=== PATIENT | male | born 1955 | race Caucasian/White ===

== ENCOUNTER → 2018-04-22 | Outpatient (CLI) | payer MEDICARE | END | disposition home or self-care (01) | LOC: Rad HDHVI 09:46 | PROVIDERS: ATTEND Internal Medicine | DX: Z01.818 Encounter for other preprocedural examination (principal); E78.5 Hyperlipidemia, unspecified; I11.9 Hypertensive heart disease without heart failure | CPT/HCPCS: 93306 ==

== ENCOUNTER → 2018-04-28 | Outpatient (CLI) | payer MEDICARE ==
[~2018-04-28] VITALS: Ht 185.4 cm; Wt 117.9 kg
== END | disposition home or self-care (01) ==
LOC: Rad HDHVI 09:40
PROVIDERS: ATTEND Internal Medicine
DX: I10 Essential (primary) hypertension (principal); E78.5 Hyperlipidemia, unspecified
CPT/HCPCS: 78452; 93017; 96374; A9500

== ENCOUNTER → 2018-05-06 | Outpatient (CLI) | payer MEDICARE ==
[~2018-05-06] MED LIST: IOHEXOL 350 MG/ML 100ML IJ ONE; METOPROLOL TARTRATE 1MG/1ML-5ML VIAL IV ONE; NITROGLYCERIN 0.4 MG SL TAB SL ONE
--- NOTE | 2018-05-06 08:50 | NUR ---
PT. TO CLINIC FOR CTA CORONARIES PER DR. NULL. PROCEDURE EXPLAINED TO PT. AT CHAIRSIDE FOR SUPPORT.
[2018-05-06 08:52] VITALS: BP 129/72
--- NOTE | 2018-05-06 08:52 | NUR ---
IV insertion IV access obtained, via clean sterile technique by inserting 20 gauge catheter at after attempt(s). IV secured properly. No trauma to site. Patient tolerated procedure well. CMP DRAWN STAT PER MD ORDER.
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
--- NOTE | 2018-05-06 09:11 | NUR ---
MEDS: PT. MEDICATED WITH LOPRESSOR 5 MG SIVP PER PROTOCOL. HR 68.
--- NOTE | 2018-05-06 09:19 | NUR ---
MEDS: LOPRESSOR 5 MG SIVP GIVEN SECOND DOSE PER PROTOCOL.SR AT 65 WITH NO ECTOPY.
--- NOTE | 2018-05-06 09:22 | NUR ---
MEDS: PT. MEDICATED WITH NTG 0.4 MG SL PER PROTOCOL PRIOR TO START OF CTA, HR 60-60
--- NOTE | 2018-05-06 09:30 | NUR ---
CTA COMPLETED WITH PT. TOLERATING PROCEDURE WELL, WITH NO C/O. AMBULATED BACK TO CLINIC WITHOUT ASSIST. TAKING PO FLUIDS.
[2018-05-06 09:33] LABS: Albumin 3.9 g/dL (3.4-5.0); Calcium 8.7 mg/dL (8.5-10.1); Potassium 3.5 mmol/L (3.5-5.1)
[2018-05-06 09:36] LABS: BUN/Creatinine Ratio 10.1; Total Protein 7.6 g/dL (6.4-8.2)
[2018-05-06 09:45] VITALS: BP 116/68
--- NOTE | 2018-05-06 09:55 | NUR ---
IV removal IV DC'd with sterile technique, catheter fully intact. Pressure dressing applied to site. Patient tolerated procedure well. Discharged with aftercare instructions per MD. NOTE: PT. INSTRUCTED TO INCREASE PO FLUIDS OVER NEXT 24 HRS.
== END | disposition home or self-care (01) ==
LOC: Rad HDHVI 08:37
PROVIDERS: ATTEND Internal Medicine
DX: I25.10 Atherosclerotic heart disease of native coronary artery without angina pectoris (principal); I10 Essential (primary) hypertension
CPT/HCPCS: 36415; 75571; 80053; G0463; Q9967

== ENCOUNTER 2018-05-13 09:40 | Day surgery (SDC) | payer MEDICARE ==
[~2018-05-13] VITALS: Ht 182.9 cm; Wt 113.4 kg
[2018-05-13 10:49] LABS: Basophils # (auto) 0.1 uL; Eosinophils # (auto) 0.2 uL; Eosinophils % (auto) 3.9 % (0.0-7.0); Hematocrit 44.9 % (41.0-53.0); Hemoglobin 15.7 g/dL (13.5-17.5); Lymphocytes # (auto) 1.6 uL; Lymphocytes % (auto) 27.1 % (10.0-50.0); Mean Corpuscular Hemoglobin 33.4 pg (28.0-32.0); Mean Corpuscular Hgb Conc. 34.9 g/dL (32.0-36.0); Mean Corpuscular Volume 95.8 fL (80.0-100.0); Monocytes # (auto) 0.6 uL; Monocytes % (auto) 10.3 % (0.0-12.0); Neutrophils # (auto) 3.4 uL; Neutrophils % (auto) 57.7 % (37.0-80.0); Nucleated Red Blood Cells % 0.1 %; Platelet Count (auto) 176 10^3/uL (140-450); Red Blood Cells 4.69 10^6/uL (4.5-5.90); Red Cell Distribution Width 13.5 % (11.8-14.3); White Blood Cell 5.9 10^3/uL (4.4-10.8)
[2018-05-13] MEDS ORDERED: IOHEXOL 350 MG/ML 100ML IJ ONE (11:13)
[2018-05-13] MEDS ORDERED: LIDOCAINE 2%HCL (LOCAL ANESTH.) INJ 20ML MDV ONE (11:13)
[2018-05-13 11:15] LABS: INR 1.06 (0.9-1.15); Partial Thromboplastin Time 30.6 sec (23.78-33.04); Prothrombin Time 11.3 sec (9.27-12.13)
[2018-05-13] MEDS ORDERED: MIDAZOLAM HCL 1MG/1ML-2 ML VIAL ONE (11:44)
[2018-05-13] MEDS ORDERED: SODIUM CHL 0.9% 0 ML ONE (11:44)
[2018-05-13] MEDS ORDERED: ANGIOMAX 250 MG VIAL IV ONE (11:44)
[2018-05-13] MEDS ORDERED: fentaNYL CITRATE 100 MCG/2 ML VL ONE (11:44)
[2018-05-13] MEDS ORDERED: IODIXANOL 320MG/ML 100ML BTL IV ONE (11:47)
== END 2018-05-13 14:35 | disposition home or self-care (01) ==
LOC: CATH 09:40
PROVIDERS: ATTEND Internal Medicine
DX: R06.02 Shortness of breath (principal); Z98.890 Other specified postprocedural states
CPT/HCPCS: 36415; 71045; 85025; 85610; 85730; 93458; A6257; C1760; C1894; J1644; J2250; J3010; J7030; Q9967; 99152